=== PATIENT | female | born 1980 | race Caucasian/White ===

== ENCOUNTER → 2017-11-28 | Outpatient (CLI) | payer BC ==
[~2017-11-28] MED LIST: ACHYD1T PO; BIRTH CONTROL PO
--- NOTE | 2017-11-28 14:49 | Diagnostic Imaging Report ---
INDICATION: Left breast calcifications, followup. COMPARISON: 07/22/2016, 01/15/2016, and 05/05/2015. TECHNIQUE: Digital diagnostic mammography was performed of the left breast with a Computer Aided Detection (CAD) system. FINDINGS: The left breast is heterogeneously dense. The parenchymal pattern is stable. Calcifications in the upper and outer aspect of the left breast appear stable and perhaps slightly less prominent on this current exam. No new mass or new calcifications are seen. The left axilla is unremarkable. IMPRESSION: No mammographic features suspicious for malignancy are identified. ACR BI-RADS Category 2: Benign findings. Result letter will be mailed to the patient. Note: At least 10% of breast cancer is not imaged by mammography. Dictated by: Dictated on workstation # [id number]
== END ==
LOC: RAD 08:00
PROVIDERS: ATTEND Obstetrics & Gynecology
DX: R92.1 Mammographic calcification found on diagnostic imaging of breast (principal)

== ENCOUNTER → 2019-07-07 | Outpatient (CLI) | payer BC ==
--- NOTE | 2019-07-07 16:17 | Diagnostic Imaging Report ---
EXAMINATION: Magnetic resonance imaging of the right knee without intravenous contrast DATE: July 07, 2019. COMPARISON: None. INDICATION: 39-year-old female, right knee pain. TECHNIQUE: Multiplanar, multisequence non contrast enhanced MR imaging was accomplished. FINDINGS: MENISCI: The medial meniscus is intact. The lateral meniscus is intact. LIGAMENTS AND TENDONS: The anterior and posterior cruciate ligaments are intact. The medial collateral ligament is intact. The iliotibial band, mid third lateral capsular ligament, fibular collateral ligament, biceps femoris tendon and conjoined tendon are intact. The quadriceps tendon and patella ligament are intact. JOINT: There is signal within the cartilage of the medial patellar facet without identified surface defect and axial T2 fat saturation sequence image 8 which may potentially correlate with an area of chondromalacia. The medial and lateral compartment cartilage is grossly intact. There is no knee joint effusion, prominent synovitis, or intra-articular body. BONE: There is a small focal area of edema-like signal involving the subchondral bone of the medial femoral condyle in its mid weightbearing aspect which is not specific. There is no acute fracture. There are no pathognomonic signal changes of osteonecrosis. BURSAE AND SOFT TISSUES: There is no Walters's cyst. Additional soft tissue evaluation is unremarkable. IMPRESSION: 1. Intact menisci and cruciate ligaments. Additional ligaments and tendons are intact. 2. 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 Additional articular cartilage is intact. No knee joint effusion. 3. Focal area of subchondral edema-like signal in the mid weightbearing portion of the medial femoral condyle which is nonspecific. A very small low-grade bone contusion or degenerative related edema would be considerations. No acute fracture. No pathognomonic signal changes of osteonecrosis. Dictated by: Dictated on workstation # [id number]
== END ==
LOC: RAD 15:03
PROVIDERS: ATTEND Nurse Practitioner
DX: S83.241A Other tear of medial meniscus, current injury, right knee, initial encounter (principal); M94.8X8 Other specified disorders of cartilage, other site
CPT/HCPCS: 73721

== ENCOUNTER → 2019-09-01 | Outpatient (CLI) | payer BC ==
--- NOTE | 2019-09-01 14:55 | Diagnostic Imaging Report ---
INDICATION: Left breast lump. COMPARISON: Correlation is made with the prior bilateral mammogram from 05/05/2015 as well as the left mammogram from 11/28/2017. TECHNIQUE: 2D and 3D bilateral diagnostic mammography was performed with CAD. A BB marker was placed at the area of palpable abnormality in the upper outer left breast. FINDINGS: Both breasts remain heterogeneously dense, limiting the sensitivity of mammography. The overall parenchymal pattern is stable. No mass or malignant appearing microcalcifications are seen. There are benign calcifications. The axillae are unremarkable. IMPRESSION: No mammographic features suspicious for malignancy are identified. Even so, directed sonographic interrogation of the area of palpable abnormality in the upper-outer left breast is recommended and will be performed today. ACR BI-RADS Category 0: Incomplete. (Needs additional imaging evaluation). Result letter will be mailed to the patient. Note: At least 10% of breast cancer is not imaged by mammography. Dictated by: Dictated on workstation # [id number]
--- NOTE | 2019-09-01 18:26 | Diagnostic Imaging Report ---
INDICATION: Left breast lump. Correlation is made with diagnostic mammogram earlier same day. FINDINGS: Sonographic interrogation of the area of lump in the upper outer left breast was performed. There are several cysts at this location, largest measuring 1.2 x 0.5 x 0.9 cm. This is the 2:00 location, 2 cm from the nipple. No solid lesions are seen. IMPRESSION: Multiple cysts at the area of palpable abnormality 2:00 location of the left breast. No solid mass is detected. Patient may return to routine annual screening mammography. ACR BI-RADS Category 2: Benign findings. Dictated by: Dictated on workstation # [id number]
== END ==
LOC: RAD 14:07
PROVIDERS: ATTEND Obstetrics & Gynecology
DX: N63.21 Unspecified lump in the left breast, upper outer quadrant (principal); N60.02 Solitary cyst of left breast
CPT/HCPCS: 76642; 77066